=== PATIENT | male | born 1985 | race Hispanic/Latino ===

== ENCOUNTER 2024-11-12 14:39 | Observation (INO) | payer SELFPAY ==
[2024-11-12] VITALS (20 sets, daily range): BP systolic 128–168; BP diastolic 92–117; PULSE 100–120; RESP 14–26; TEMP 36.1–36.9; O2SAT 93–100; BMI 38.6
--- NOTE | 2024-11-12 14:55 | ED_ITS ---
HPI - General Adult General Chief complaint: Unspecified Stated complaint: Muscle Cramps Time Seen by Provider: 11/12/24 16:40 Focused HPI: 39-year-old [place] Zealander-speaking male presents the ED via EMS for muscle cramping, nausea, vomiting that started an hour and half prior to arrival. 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 He states he has not eaten or had much to drink today. About an hour half ago he began to have sudden onset muscle cramps, nausea and vomiting. GENERAL: Ill-appearing HEAD: Normocephalic, atraumatic. CHEST: Clear to auscultation. ?No respiratory distress. HEART: Regular rate and rhythm.? NEURO: ?Alert and oriented x3. Patient screened in triage and initial orders placed.? ?Additional care and disposition to be based upon?diagnostic testing and treatment. Related Data Allergies Allergy/AdvReac Type Severity Reaction Status Date / Time No Known Allergies Allergy Verified 11/12/24 22:21 [facility] Social History Social History Smoking status: Current every day smoker Tobacco type: cigarettes Alcohol intake: current Drinks per week: 10 Substance use: current Substance use type: marijuana Last use: 11/07/24 Lack of Transportation: YES Lack of Food: Often True Current Housing: I Have Housing Concerned About Future Housing: No Difficulty Paying Gas/Electric Bills: No Difficulty Paying for Meds: No Currently Unemployed: No Education: Grade School Difficulty w/ Childcare or Family Care: No Spiritual care concerns: No Course Vital Signs Vital signs: Vital Signs Temperature 96.9 F L 11/12/24 14:42 Pulse Rate 120 H 11/12/24 14:42 Respiratory Rate 18 11/12/24 14:42 Blood Pressure 128/94 H 11/12/24 14:42 Pulse Oximetry 97 11/12/24 14:42 Oxygen Delivery Room Air 11/12/24 14:42 Temperature 97.6 F 11/14/24 08:00 Pulse Rate 79 11/14/24 08:00 Respiratory Rate 17 11/14/24 08:00 Blood Pressure 140/72 11/14/24 12:04 Pulse Oximetry 100 11/14/24 08:00 Oxygen Delivery Room Air 11/14/24 08:00 Medical Decision Making Vital Signs Vital Signs: Vital Signs Temperature 96.9 F L 11/12/24 14:42 Pulse Rate 120 H 11/12/24 14:42 Respiratory Rate 18 11/12/24 14:42 Blood Pressure 128/94 H 11/12/24 14:42 Pulse Oximetry 97 11/12/24 14:42 Oxygen Delivery Room Air 11/12/24 14:42 Temperature 97.6 F 11/14/24 08:00 Pulse Rate 79 11/14/24 08:00 Respiratory Rate 17 11/14/24 08:00 Blood Pressure 140/72 11/14/24 12:04 Pulse Oximetry 100 11/14/24 08:00 Oxygen Delivery Room Air 11/14/24 08:00 Lab Data 11/14/24 05:58 11/14/24 05:58 Labs: Lab Results 11/12/24 Range/Units 16:04 WBC 13.5 H (4.5-10.0) K/mm3 RBC 5.18 (4.6-6.20) M/mm3 Hgb 16.5 (14.0-18.0) g/dL Hct 47.5 (42.0-52.0) % MCV 91.7 (80-100) fl MCH 31.9 (26-34) pg MCHC 34.7 (32-36) g/dl RDW 12.6 (11.5-14.5) % Plt Count 251 (150-375) k/mm3 MPV 10.8 H (7.4-10.4) fl Immature Gran % (Auto) 1.0 H (0-0.5) % Neut % (Auto) 85.9 H (45.5-73.1) % Lymph % (Auto) 7.2 L (18.3-44.2) % [place] % (Auto) 5.6 (2.6-8.5) % Eos % (Auto) 0.0 (0-4.4) % Baso % (Auto) 0.3 (0.2-1.2) % Lymph # (Auto) 0.97 (0.9-3.2) K/mm3 [place] # (Auto) 0.8 H (0.1-0.6) K/mm3 Eos # (Auto) 0.0 (0-0.3) K/mm3 Baso # (Auto) 0.0 (0.0-0.1) K/mm3 Abs Immat Gran (auto) 0.14 H (0.00-0.031) K/mm3 Absolute Neuts (auto) 11.6 H (1.3-6.7) K/mm3 Absolute Nucleated RBC 0.000 (0.0-0.012) K/mm3 Nucleated RBC % 0.0 (0.0-0.2) % Sodium 136 L (137-145) mmol/L Potassium 3.4 (3.4-5.0) mmol/L Chloride 102 (98-107) mmol/L Carbon Dioxide 18 L (22-30) mmol/L Anion Gap 16 H (4-12) mmol/L BUN 13 (9-20) mg/dL Creatinine 2.25 H (0.7-1.3) mg/dL Estim Creat Clear Calc Not Reportable Estimated GFR 32 L (59 - ) Glucose 161 H (65-110) mg/dL Hemoglobin A1c 5.7 (<5.7) % Calcium 10.3 H (8.4-10.2) mg/dL Magnesium 2.0 (1.6-2.3) mg/dL Total Bilirubin 1.5 H (0.2-1.3) mg/dL AST 94 H (17-59) U/L ALT 52 H (6-50) U/L Alkaline Phosphatase 125 (38-126) U/L Total Creatine Kinase 285 H (55-170) U/L Total Protein 9.4 H (6.3-8.2) g/dL Albumin 5.0 (3.5-5.1) g/dL Discharge Plan Discharge Clinical Impression: POOJA (acute kidney injury) Heat exhaustion Qualifiers: Encounter type: initial encounter Qualified Code(s): T67.5XXA - Heat exhaustion, unspecified, initial encounter Patient Disposition: Still a Patient Condition: Stable
[2024-11-12] MEDS: ONDANSETRON INJ 4 MG/2 ML VIAL IV PUSH (16:11)
[2024-11-12 16:16] LABS: Hematocrit 47.5 % (42.0-52.0); Hemoglobin 16.5 g/dL (14.0-18.0); Immature Granulocyte Percent A 1.0 % (0-0.5); Lymphocytes Absolute Auto 0.97 K/mm3 (0.9-3.2); Mean Corpuscular HGB Conc 34.7 g/dl (32-36); Mean Corpuscular Hemoglobin 31.9 pg (26-34); Mean Corpuscular Volume 91.7 fl (80-100); Nucleated Red Blood Cells Absolute Auto 0.000 K/mm3 (0.0-0.012); Nucleated Red Blood Cells Perc 0.0 % (0.0-0.2); Platelet Count Result 251 k/mm3 (150-375); Red Blood Count 5.18 M/mm3 (4.6-6.20); White Blood Count 13.5 K/mm3 (4.5-10.0)
[2024-11-12 16:37] LABS: Alanine Aminotransferase 52 U/L (6-50); Albumin Level 5.0 g/dL (3.5-5.1); Alkaline Phosphatase 125 U/L (38-126); Anion Gap 16 mmol/L (4-12); Aspartate Amino Transferase 94 U/L (17-59); Bilirubin,Total 1.5 mg/dL (0.2-1.3); Blood Urea Nitrogen 13 mg/dL (9-20); Calcium 10.3 mg/dL (8.4-10.2); Carbon Dioxide 18 mmol/L (22-30); Chloride 102 mmol/L (98-107); Creatine Kinase 285 U/L (55-170); Estimated Glomerular Filt Rate 32; Glucose 161 mg/dL (65-110); Magnesium 2.0 mg/dL (1.6-2.3); Potassium 3.4 mmol/L (3.4-5.0); Sodium 136 mmol/L (137-145); Total Protein 9.4 g/dL (6.3-8.2)
[2024-11-12] MEDS: SODIUM CHLORIDE 0.9% IV 1,000 ML 999 ML IV CONT (16:39)
--- NOTE | 2024-11-12 18:36 | PC.NURSE ---
pt cannot urinate for a UA. pt has tried numerous times but does not feel the urge to go. pt is A&OX4 and refusing a catheter.
--- NOTE | 2024-11-12 20:27 | ECG_ITS ---
Test Date: 2024-11-13 09:30:28 Measurements Intervals [place] Rate: 85 P: 43 OR: 183 QRS: -7 QRSD: 111 T: 7 QT: 384 QTc: 459 Interpretive Statements SINUS RHYTHM INCOMPLETE RIGHT BUNDLE BRANCH BLOCK VOLTAGE CRITERIA FOR LVH BORDERLINE T WAVE ABNORMALITY- INFERIOR LEADS BORDERLINE ECG No previous ECG available for comparison Electronically Signed On 11-13-2024 10:02:03 CDT by Carmelo Rodriguez D.O.
[2024-11-12 21:30] LABS: Hemoglobin A1C 5.7 % (<5.7)
[2024-11-12] MEDS: LACTATED RINGERS 1,000 ML 500 ML IV CONT (21:48)
[2024-11-12 22:04] LABS: Add Urine Microscopic? YES; Appearance Urine Turbid (Clear); Glucose Urine UA Negative (Negative); Leukocyte Esterase Ur Trace LEU/UL (Negative); Need Manual Microscopic Reviewed; Nitrate Urine Negative (Negative); Non Pathogenic Casts >20; Specific Grav Ur 1.029 (1.001-1.035)
[2024-11-12] MEDS: POTASSIUM CHLORIDE 20 MEQ PACKET (FOR LIQUID) 40 MEQ PO (22:41)
--- NOTE | 2024-11-12 22:46 | ADMGEN ---
This patient, David Dave, was admitted to [facility] Surg Room 310-01. Patient/family oriented to hospital policies and general routines including ID bracelet, bed and alarms, visiting hours, pain management, procedures, bathroom and other care routines, personal items, smoking policy, room service/diet, and visiting hours. Information on how to activate the Rapid Response Team has been discussed. Patient/Family are encouraged to report perceived risks to care and to ask questions if they do not understand what they are told or what they should do.
[2024-11-12] MEDS: SODIUM CHLORIDE 0.9% IV 1,000 ML 125 ML IV CONT (23:55)
[2024-11-13] VITALS: BP 135/89; PULSE 92; RESP 17; TEMP 36.3; O2SAT 100
--- NOTE | 2024-11-13 00:41 | PM.IMHP ---
H&P: HPI History of Present Illness Date/Time: 11/13/24 00:41 Chief Complaint: Heat exhaustion, nausea vomiting, dehydration Narrative: This is a 39 year old male patient Green[place]ic only speaker admitted to the hospital after episode of heat exhaustion with nausea, vomiting and abnormal labs. 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 He started feeling sick and vomiting. Labs in ER show significant findings of dehydration with Cr 2.25, Calcium 10.3, CK 285, CO2 18 with an anion gap of 16 and glucose of 161. Urine had 2+ ketones but likely to be dehydration related. No history of diabetes. Blood pressure quite elevated. Patient also reports that he drinks alcohol heavily often. He also smokes cigarettes and marijuana. Patient was treated with IV fluids in ER and on admission to the floor. He reports nausea is improved and he has no pain. He denies any prescription medications. Review of Systems Review of Systems: All systems reviewed & are unremarkable except as noted in HPI and below PMFSH Social History Social History Smoking status: Current every day smoker Tobacco type: cigarettes Alcohol intake: current Drinks per week: 10 Substance use: current Substance use type: marijuana Last use: 11/07/24 Lack of Transportation: YES Lack of Food: Often True Current Housing: I Have Housing Concerned About Future Housing: No Difficulty Paying Gas/Electric Bills: No Difficulty Paying for Meds: No Currently Unemployed: No Education: Grade School Difficulty w/ Childcare or Family Care: No Spiritual care concerns: No Meds Home Medications and Allergies Home Medications ?Medication ?Instructions ?Recorded ?Confirmed ?Type No Home Medications 11/12/24 11/12/24 History Allergies Allergy/AdvReac Type Severity Reaction Status Date / Time No Known Allergies Allergy Verified 11/12/24 22:21 Vital Signs Vital Signs - 24 hr 11/12/24 14:42 11/12/24 16:13 11/12/24 16:36 Temperature 36.1 C L 36.3 C L Pulse Rate 120 H 108 H Respiratory Rate 18 22 H Blood Pressure 128/94 H Pulse Oximetry 97 95 Oxygen Delivery Room Air 11/12/24 16:38 11/12/24 16:45 11/12/24 16:46 Temperature 36.9 C Pulse Rate 108 H 108 H 109 H Respiratory Rate 16 21 H 21 H Blood Pressure 143/104 H 156/117 H Pulse Oximetry 93 95 97 Oxygen Delivery 11/12/24 17:00 11/12/24 17:01 11/12/24 17:15 Temperature Pulse Rate 103 H 108 H Respiratory Rate 14 22 H 23 H Blood Pressure 165/117 H 158/111 H Pulse Oximetry 96 99 93 Oxygen Delivery 11/12/24 17:16 11/12/24 17:30 11/12/24 17:31 Temperature Pulse Rate 109 H 112 H Respiratory Rate 23 H 24 H 25 H Blood Pressure 140/105 H Pulse Oximetry 98 Oxygen Delivery 11/12/24 17:45 11/12/24 18:00 11/12/24 18:01 Temperature Pulse Rate 114 H 104 H 107 H Respiratory Rate 22 H 21 H 26 H Blood Pressure 156/107 H Pulse Oximetry Oxygen Delivery 11/12/24 18:36 11/12/24 20:00 11/12/24 20:48 Temperature 36.5 C Pulse Rate 100 113 H Respiratory Rate 20 19 Blood Pressure 167/115 H 168/98 H Pulse Oximetry 98 100 94 Oxygen Delivery Room Air 11/12/24 21:50 11/12/24 22:44 11/13/24 00:00 Temperature 36.3 C L Pulse Rate 105 H 92 Respiratory Rate 17 Blood Pressure 140/92 H 135/89 Pulse Oximetry 100 Oxygen Delivery Exam Narrative: GENERAL: Well-appearing, well-nourished, and in no acute distress. HEAD: Normocephalic, atraumatic. ENT:? Mucous membranes moist. CHEST: Clear to auscultation.? No respiratory distress. HEART: Regular rate and rhythm. ? Normal peripheral pulses. ABDOMEN: Soft, nontender, nondistended. EXTREMITIES: Normal range of motion. No peripheral edema. SKIN: Warm dry normal color NEURO: Alert and oriented x3. PSYCH: Normal mood and affect H&P: Results Labs Labs: Short CBC 11/12/24 Range/Units 16:04 WBC 13.5 H (4.5-10.0) K/mm3 Hgb 16.5 (14.0-18.0) g/dL Hct 47.5 (42.0-52.0) % Plt Count 251 (150-375) k/mm3 BMP 11/12/24 16:04 Sodium 136 L Potassium 3.4 Chloride 102 Carbon Dioxide 18 L BUN 13 Creatinine 2.25 H Glucose 161 H Calcium 10.3 H Cardiac Enzymes 11/12/24 Range/Units 16:04 Total Creatine Kinase 285 H (55-170) U/L Liver Function 11/12/24 Range/Units 16:04 Total Bilirubin 1.5 H (0.2-1.3) mg/dL AST 94 H (17-59) U/L ALT 52 H (6-50) U/L Alkaline Phosphatase 125 (38-126) U/L Albumin 5.0 (3.5-5.1) g/dL Urine 11/12/24 Range/Units 21:47 Urine Color Dark yellow (Yellow) Urine Appearance Turbid H (Clear) Urine pH 5.5 (5.0-9.0) Ur Specific [place] 1.029 (1.001-1.035) Urine Protein 2+ H (Negative) mg/dL Urine Glucose (UA) Negative (Negative) mg/dL Pulse Oximetry SpO2 results: 94-98% on room air Attestation: I personally reviewed and interpreted this pulse oximetry as follows: Interpretation: No need for supplemental oxygenation at this time Assessment and Plan Assessment and plan (1) POOJA (acute kidney injury): Code(s): N17.9 - Acute kidney failure, unspecified Status: Acute Assessment and Plan: -Cr 2.25 and eGFR 37 in ER -IV fluids 1 liter normal saline and 1 liter LR then normal saline at 125 mL/hr -Repeat labs in the morning -No prior labs on file -Elevated blood pressure and risk factors so patient may have chronic kidney disease underlying (2) Heat exhaustion: Qualifiers: Encounter type: initial encounter Qualified Code(s): T67.5XXA - Heat exhaustion, unspecified, initial encounter Code(s): T67.5XXA - Heat exhaustion, unspecified, initial encounter Status: Acute Assessment and Plan: -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 -Limited intake of food/fluids today -Nausea/vomiting today (3) Metabolic acidosis: Code(s): E87.20 - Acidosis, unspecified Status: Acute Assessment and Plan: -Carbon dioxide decreased with mildly elevated anion gap -Urine with 2+ ketones -[place] to be dehydration related -Repeat labs in the morning (4) Elevated blood pressure reading: Code(s): R03.0 - Elevated blood-pressure reading, without diagnosis of hypertension Status: Acute Assessment and Plan: -Elevated blood pressure noted on admission -Improved blood pressure after IV labetalol (5) Hyperglycemia: Code(s): R73.9 - Hyperglycemia, unspecified Status: Acute Assessment and Plan: -Noted on admission, added A1c to labs -A1c 5.7 (6) Chronic alcohol use: Code(s): F10.90 - Alcohol use, unspecified, uncomplicated Status: Acute Assessment and Plan: -Noted (7) Smoker: Code(s): F17.200 - Nicotine dependence, unspecified, uncomplicated Status: Acute Assessment and Plan: -Noted, offered nicotine patch Quality VTE Prophylaxis VTE prophylaxis: mechanical ordered Hospitalist MIPS Advance Care Plan I have confirmed that the patient's Advanced Care Plan is present, code status is documented, or surrogate decision maker is listed in patient medical record.: Yes Medication Reconciliation I have utilized all available resources to obtain, update and review the patients current medications (includes all prescriptions, OTC, herbals, cannabis, and nutritional supplements).: Yes
[2024-11-13 04:00] VITALS: BP 150/94; PULSE 88; RESP 14; TEMP 36.3; O2SAT 100
[2024-11-13] MEDS: SODIUM CHLORIDE 0.9% IV 1,000 ML 125 ML IV CONT ×3 (05:19→22:49)
[2024-11-13 06:11] LABS: Hematocrit 39.4 % (42.0-52.0); Hemoglobin 13.5 g/dL (14.0-18.0); Immature Granulocyte Percent A 0.6 % (0-0.5); Lymphocytes Absolute Auto 1.72 K/mm3 (0.9-3.2); Mean Corpuscular HGB Conc 34.3 g/dl (32-36); Mean Corpuscular Hemoglobin 32.4 pg (26-34); Mean Corpuscular Volume 94.5 fl (80-100); Nucleated Red Blood Cells Absolute Auto 0.000 K/mm3 (0.0-0.012); Nucleated Red Blood Cells Perc 0.0 % (0.0-0.2); Platelet Count Result 180 k/mm3 (150-375); Red Blood Count 4.17 M/mm3 (4.6-6.20); White Blood Count 8.0 K/mm3 (4.5-10.0)
[2024-11-13 06:43] LABS: Alanine Aminotransferase 38 U/L (6-50); Albumin Level 3.8 g/dL (3.5-5.1); Alkaline Phosphatase 81 U/L (38-126); Anion Gap 7 mmol/L (4-12); Aspartate Amino Transferase 74 U/L (17-59); Bilirubin,Total 1.5 mg/dL (0.2-1.3); Blood Urea Nitrogen 14 mg/dL (9-20); Calcium 8.7 mg/dL (8.4-10.2); Carbon Dioxide 22 mmol/L (22-30); Chloride 105 mmol/L (98-107); Creatine Kinase 399 U/L (55-170); Estimated CRCL calculation 78 ml/min; Estimated Glomerular Filt Rate > 60; Glucose 102 mg/dL (65-110); Magnesium 2.0 mg/dL (1.6-2.3); Potassium 3.3 mmol/L (3.4-5.0); Sodium 134 mmol/L (137-145); Total Protein 6.8 g/dL (6.3-8.2)
[2024-11-13 08:00] VITALS: BP 148/95; PULSE 87; RESP 18; TEMP 36.4; O2SAT 100
--- NOTE | 2024-11-13 11:01 | PM.IMPN ---
Progress Note: A&P Assessment and Plan (1) POOJA (acute kidney injury): Code(s): N17.9 - Acute kidney failure, unspecified Status: Acute Assessment and Plan: -Cr 2.25 and eGFR 37 in ER -IV fluids 1 liter normal saline and 1 liter LR then normal saline at 125 mL/hr -No prior labs on file -Elevated blood pressure and risk factors so patient may have chronic kidney disease underlying Creatinine is down to normal 1.13 today Hyponatremia, hypokalemia Sodium 134, on the baseline Potassium 3.3 Replete with potassium chloride 40 mg b.i.d. p.o. 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 -Limited intake of food/fluids today -Nausea/vomiting upon arrival in the ED Resolved (3) Metabolic acidosis: Code(s): E87.20 - Acidosis, unspecified Status: Acute Assessment and Plan: -Carbon dioxide decreased with mildly elevated anion gap -Urine with 2+ ketones -[place] to be dehydration related Corrected (4) Elevated blood pressure reading: Code(s): R03.0 - Elevated blood-pressure reading, without diagnosis of hypertension Status: Acute Assessment and Plan: -Elevated blood pressure noted on admission -Improved blood pressure after IV labetalol Controlled (5) Hyperglycemia: Code(s): R73.9 - Hyperglycemia, unspecified Status: Acute Assessment and Plan: -Noted on admission, added A1c to labs -A1c 5.7 (6) Chronic alcohol use: Code(s): F10.90 - Alcohol use, unspecified, uncomplicated Status: Acute Assessment and Plan: -Noted (7) Smoker: Code(s): F17.200 - Nicotine dependence, unspecified, uncomplicated Status: Acute Assessment and Plan: -Noted, offered nicotine patch Plan May discharge patient tomorrow if condition continues to improve Subjective Date/time seen: 11/13/24 11:01 Interval history: I saw exam patient today, patient feels better today Patient afebrile blood pressure stable. Denies nausea vomiting diarrhea Labs reviewed, POOJA resolved, creatinine 1.13 today Exam Narrative: GENERAL: Well-appearing, well-nourished, and in no acute distress. HEAD: Normocephalic, atraumatic. ENT:? Mucous membranes moist. CHEST: Clear to auscultation.? No respiratory distress. HEART: Regular rate and rhythm. ? Normal peripheral pulses. ABDOMEN: Soft, nontender, nondistended. EXTREMITIES: Normal range of motion. No peripheral edema. SKIN: Warm dry normal color NEURO: Alert and oriented x3. PSYCH: Normal mood and affect Objective Data Vital Signs Vital Signs: Vital Signs - 24 hr 11/12/24 14:42 11/12/24 16:13 11/12/24 16:36 Temperature 96.9 F L 97.4 F L Pulse Rate 120 H 108 H Respiratory Rate 18 22 H Blood Pressure 128/94 H Pulse Oximetry 97 95 Oxygen Delivery Room Air 11/12/24 16:38 11/12/24 16:45 11/12/24 16:46 Temperature 98.4 F Pulse Rate 108 H 108 H 109 H Respiratory Rate 16 21 H 21 H Blood Pressure 143/104 H 156/117 H Pulse Oximetry 93 95 97 Oxygen Delivery 11/12/24 17:00 11/12/24 17:01 11/12/24 17:15 Temperature Pulse Rate 103 H 108 H Respiratory Rate 14 22 H 23 H Blood Pressure 165/117 H 158/111 H Pulse Oximetry 96 99 93 Oxygen Delivery 11/12/24 17:16 11/12/24 17:30 11/12/24 17:31 Temperature Pulse Rate 109 H 112 H Respiratory Rate 23 H 24 H 25 H Blood Pressure 140/105 H Pulse Oximetry 98 Oxygen Delivery 11/12/24 17:45 11/12/24 18:00 11/12/24 18:01 Temperature Pulse Rate 114 H 104 H 107 H Respiratory Rate 22 H 21 H 26 H Blood Pressure 156/107 H Pulse Oximetry Oxygen Delivery 11/12/24 18:36 11/12/24 20:00 11/12/24 20:48 Temperature 97.7 F Pulse Rate 100 113 H Respiratory Rate 20 19 Blood Pressure 167/115 H 168/98 H Pulse Oximetry 98 100 94 Oxygen Delivery Room Air 11/12/24 21:50 11/12/24 22:44 11/13/24 00:00 Temperature 97.3 F L Pulse Rate 105 H 92 Respiratory Rate 17 Blood Pressure 140/92 H 135/89 Pulse Oximetry 100 Oxygen Delivery 11/13/24 04:00 11/13/24 08:00 Temperature 97.4 F L 97.6 F Pulse Rate 88 87 Respiratory Rate 14 18 Blood Pressure 150/94 H 148/95 H Pulse Oximetry 100 100 Oxygen Delivery Intake/Output Intake/Output: Intake & Output 11/10/24 11/11/24 11/12/24 11/13/24 23:59 23:59 23:59 23:59 Intake Total 1000 1345 Balance 1000 1345 Meds/Results Medications: Active Medications Generic Name Dose Route Start Last Admin Trade Name Freq PRN Reason Stop Dose Admin Sodium Chloride 1,000 mls @ 125 mls/hr 11/12/24 18:05 11/13/24 05:19 Normal Saline Iv IV CONT 125 mls/hr .Q8H ITA Administration Ondansetron HCl 4 mg 11/12/24 20:28 Ondansetron Inj 4 Mg/2 Ml Vial IV PUSH Q4H PRN Nausea And Vomiting Labs Labs: Laboratory Results - last 24 hr 11/12/24 11/12/24 11/13/24 16:04 21:47 05:13 WBC 13.5 H 8.0 RBC 5.18 4.17 L Hgb 16.5 13.5 L D Hct 47.5 39.4 L MCV 91.7 94.5 MCH 31.9 32.4 MCHC 34.7 34.3 RDW 12.6 12.7 Plt Count 251 180 MPV 10.8 H 11.1 H Immature Gran % (Auto) 1.0 H 0.6 H Neut % (Auto) 85.9 H 66.9 Lymph % (Auto) 7.2 L 21.4 [place] % (Auto) 5.6 10.2 H Eos % (Auto) 0.0 0.5 Baso % (Auto) 0.3 0.4 Lymph # (Auto) 0.97 1.72 [place] # (Auto) 0.8 H 0.8 H Eos # (Auto) 0.0 0.0 Baso # (Auto) 0.0 0.0 Abs Immat Gran (auto) 0.14 H 0.05 H Absolute Neuts (auto) 11.6 H 5.4 Absolute Nucleated RBC 0.000 0.000 Nucleated RBC % 0.0 0.0 Sodium 136 L 134 L Potassium 3.4 3.3 L Chloride 102 105 Carbon Dioxide 18 L 22 Anion Gap 16 H 7 BUN 13 14 Creatinine 2.25 H 1.13 Estim Creat Clear Calc Not Reportable 78 Estimated GFR 32 L > 60 Glucose 161 H 102 Hemoglobin A1c 5.7 Calcium 10.3 H 8.7 Phosphorus 3.4 Magnesium 2.0 2.0 Total Bilirubin 1.5 H 1.5 H AST 94 H 74 H ALT 52 H 38 Alkaline Phosphatase 125 81 Total Creatine Kinase 285 H 399 H Total Protein 9.4 H 6.8 Albumin 5.0 3.8 Urine Color Dark yellow Urine Appearance Turbid H Urine pH 5.5 Ur Specific [place] 1.029 Urine Protein 2+ H Urine Glucose (UA) Negative Urine Ketones 2+ H Ur Blood (Man) Negative Urine Nitrate Negative Urine Bilirubin 2+ H Urine Urobilinogen 1.0 Add Ur Microanalysis Reviewed Leukocyte Esterase Rfl Trace H Urine RBC 21-50 H Urine WBC 0-5 Ur Squamous Epith Cells None seen Calcium Oxalate Crystal Present Urine Bacteria None seen Urine Casts >20 Hyaline Casts Present Urine Mucus Present
[2024-11-13 12:00] VITALS: BP 141/93; PULSE 85; RESP 16; TEMP 36.4; O2SAT 100
[2024-11-13 14:00] VITALS: BP 140/91; PULSE 87; RESP 16; TEMP 36.4; O2SAT 100
[2024-11-13 20:00] VITALS: BP 131/85; PULSE 78; RESP 18; TEMP 36.9; O2SAT 100
[2024-11-14] VITALS: BP 141/98; PULSE 72; RESP 18; TEMP 36.6; O2SAT 100
[2024-11-14 04:00] VITALS: BP 135/88; PULSE 74; RESP 16; TEMP 36.7; O2SAT 99
[2024-11-14] MEDS: SODIUM CHLORIDE 0.9% IV 1,000 ML 125 ML IV CONT (06:02)
[2024-11-14 06:29] LABS: Hematocrit 40.0 % (42.0-52.0); Hemoglobin 13.9 g/dL (14.0-18.0); Immature Granulocyte Percent A 0.6 % (0-0.5); Lymphocytes Absolute Auto 1.50 K/mm3 (0.9-3.2); Mean Corpuscular HGB Conc 34.8 g/dl (32-36); Mean Corpuscular Hemoglobin 32.5 pg (26-34); Mean Corpuscular Volume 93.5 fl (80-100); Nucleated Red Blood Cells Absolute Auto 0.000 K/mm3 (0.0-0.012); Nucleated Red Blood Cells Perc 0.0 % (0.0-0.2); Platelet Count Result 173 k/mm3 (150-375); Red Blood Count 4.28 M/mm3 (4.6-6.20); White Blood Count 6.4 K/mm3 (4.5-10.0)
[2024-11-14 07:09] LABS: Alanine Aminotransferase 41 U/L (6-50); Albumin Level 3.9 g/dL (3.5-5.1); Alkaline Phosphatase 76 U/L (38-126); Anion Gap 6 mmol/L (4-12); Aspartate Amino Transferase 61 U/L (17-59); Bilirubin,Total 1.1 mg/dL (0.2-1.3); Blood Urea Nitrogen 7 mg/dL (9-20); Calcium 8.6 mg/dL (8.4-10.2); Carbon Dioxide 24 mmol/L (22-30); Chloride 103 mmol/L (98-107); Creatine Kinase 330 U/L (55-170); Estimated CRCL calculation 113 ml/min; Estimated Glomerular Filt Rate > 60; Glucose 100 mg/dL (65-110); Magnesium 1.8 mg/dL (1.6-2.3); Potassium 3.7 mmol/L (3.4-5.0); Sodium 133 mmol/L (137-145); Total Protein 6.9 g/dL (6.3-8.2)
[2024-11-14 08:00] VITALS: BP 140/78; PULSE 79; RESP 17; TEMP 36.4; O2SAT 100; O2SAT 99
[2024-11-14 12:04] VITALS: BP 140/72
--- NOTE | 2024-11-14 12:25 | P.DS_ITS ---
DS: Admitting Diagnosis Discharge Date 11/14/2024 Admitting Diagnosis Heat exhaustion, dehydration, acute kidney injury DS: Discharge Diagnosis Discharge Diagnosis (1) POOJA (acute kidney injury): Code(s): N17.9 - Acute kidney failure, unspecified Status: Acute Assessment and Plan: -Cr 2.25 and eGFR 37 in ER -IV fluids 1 liter normal saline and 1 liter LR then normal saline at 125 mL/hr -No prior labs on file -Elevated blood pressure and risk factors so patient may have chronic kidney disease underlying Creatinine is down to normal 1.13 then 0.76 by 11/14 Hyponatremia, hypokalemia Sodium 134, on the baseline Potassium 3.3 Replete with potassium chloride 40 mg b.i.d. p.o. (2) Elevated blood pressure reading: Code(s): R03.0 - Elevated blood-pressure reading, without diagnosis of hypertension Status: Acute Assessment and Plan: Continue amlodipine 5 mg daily (3) Hyperglycemia: Code(s): R73.9 - Hyperglycemia, unspecified Status: Acute Assessment and Plan: Needs outpt f/u for daibetes screening (4) Chronic alcohol use: Code(s): F10.90 - Alcohol use, unspecified, uncomplicated Status: Acute Assessment and Plan: Needs outpt f/u DS: Summary Hospital Course Hospital Course: Presented with nausea and dizziness dehydration and acute kidney injury. 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 Creatinine was 2.25 at admission and 0.76 after 2 days of IV hydration. Electrolytes were mildly abnormal at admission as noted below and then after hydration and repletion unremarkable. Creatinine kinase was 330. There was no evidence for infection. He tolerated his diet well once rehydrated. Was up and about independently. He was alert oriented to person place and time. He wished to go home and return to work Saturday. Time Spent with Patient Time attestation: Total time spent providing and/or coordinating discharge services: Exam Narrative: GENERAL: Well-appearing, well-nourished, and in no acute distress. HEAD: Normocephalic, atraumatic. ENT:? Mucous membranes moist. CHEST: Clear to auscultation.? No respiratory distress. HEART: Regular rate and rhythm. ? Normal peripheral pulses. ABDOMEN: Soft, nontender, nondistended. EXTREMITIES: Normal range of motion. No peripheral edema. SKIN: Warm dry normal color NEURO: Alert and oriented x3. PSYCH: Normal mood and affect DS: Data Data Completed and Pending Labs on day of discharge: Labs from last 24 hours 11/14/24 05:58 WBC 6.4 RBC 4.28 L Hgb 13.9 L Hct 40.0 L MCV 93.5 MCH 32.5 MCHC 34.8 RDW 12.5 Plt Count 173 MPV 10.7 H Immature Gran % (Auto) 0.6 H Neut % (Auto) 65.5 Lymph % (Auto) 23.4 [place] % (Auto) 8.9 H Eos % (Auto) 1.1 Baso % (Auto) 0.5 Lymph # (Auto) 1.50 [place] # (Auto) 0.6 Eos # (Auto) 0.1 Baso # (Auto) 0.0 Abs Immat Gran (auto) 0.04 H Absolute Neuts (auto) 4.2 Absolute Nucleated RBC 0.000 Nucleated RBC % 0.0 Sodium 133 L Potassium 3.7 Chloride 103 Carbon Dioxide 24 Anion Gap 6 BUN 7 L D Creatinine 0.76 Estim Creat Clear Calc 113 Estimated GFR > 60 Glucose 100 Calcium 8.6 Phosphorus 2.2 L Magnesium 1.8 Total Bilirubin 1.1 AST 61 H ALT 41 Alkaline Phosphatase 76 Total Creatine Kinase 330 H Total Protein 6.9 Albumin 3.9 Discharge Plan Discharge Discharging Clinician: Fitz Sarmiento Patient Disposition: Home Activity: as tolerated Diet: regular Discharge Instructions: While working, drink one cup of water at least hourly. Patient Language: Citizen Of [place] Stand Alone Forms: General Discharge Information, Work/School Release IP Follow-up/Referrals: Fitz Sarmiento MD [Physician] - Call for Appointment (primary care checkup) Discharge Medications: No Action No Home Medications Date of admission: 11/12/24 18:03 Primary Care Provider: PHYSICIAN,SUPERVISOR IN CHARGE Admitting Provider: Maryann Nelson Attending physician on admission: Maryann Nelson Condition: Stable
== END 2024-11-14 14:36 | disposition home or self-care (01) ==
LOC: ANHED 18:14 → ANH3MEDSUR 11-14 12:32
PROVIDERS: Nurse Practitioner; Physician Assistant; Admitting Provider General Practice; Emergency Provider Student in an Organized Health Care Education/Training Program; Visit Provider Internal Medicine
DX: N17.9 Acute kidney failure, unspecified (principal); T67.5XXA Heat exhaustion, unspecified, initial encounter; R11.2 Nausea with vomiting, unspecified; E86.0 Dehydration; E87.20 Acidosis, unspecified; R03.0 Elevated blood-pressure reading, without diagnosis of hypertension; R73.9 Hyperglycemia, unspecified; X30.XXXA Exposure to excessive natural heat, initial encounter; F17.210 Nicotine dependence, cigarettes, uncomplicated; F12.90 Cannabis use, unspecified, uncomplicated; F10.90 Alcohol use, unspecified, uncomplicated
CPT/HCPCS: 36415; 80053; 80069; 81001; 82550; 83036; 83735; 84100; 85025; 93005; 96361; 96374; 96375; 99285; A9270; G0378; G0379; J0360; J2405; J7030; J7120